=== PATIENT | female | born 1970 | race Caucasian/White ===

== ENCOUNTER → 2024-06-20 12:18 | Outpatient (ROUT) | payer BC, SELFPAY ==
[2024-06-20 12:35] LABS: BUN Creatinine Ratio 11.3 (6-22); Blood Urea Nitrogen 9 mg/dL (7-17); Calcium 9.4 mg/dL (8.4-10.2); Carbon Dioxide 24 mmol/L (22-32); Chloride 103 mmol/L (98-107); Estimated Glomerular Filt Rate > 60 mL/min (>60); Glucose 112 mg/dL (70-100); HEMOLYSIS < 15 (0-50); Potassium 4.2 mmol/L (3.4-5.1); Sodium 137 mmol/L (137-145)
== END ==
PROVIDERS: Visit Provider Family Medicine
DX: U07.1 COVID-19 (principal)
CPT/HCPCS: 80048

== ENCOUNTER → 2024-11-23 07:00 | Outpatient (CLI) | payer BC, SELFPAY ==
[2024-11-23 08:17] LABS: Hematocrit 39.3 % (36-46); Hemoglobin 13.6 g/dL (12.0-16.0); Mean Corpuscular HGB Conc 34.6 % (30-36); Mean Corpuscular Hemoglobin 31.7 PG (26-34); Mean Corpuscular Volume 91.6 fL (80-100); Platelet Count 279 X10^3/uL (150-400); Red Blood Cell Count 4.29 X10^6/uL (4.0-5.2); Red Cell Distribution Width 13.1 % (11.6-14.8); White Blood Cell Count 5.6 X10^3/uL (4.5-11.0)
[2024-11-23 08:33] LABS: Hemoglobin A1C% w Est Avg Glu 5.2 % (4.0-6.0)
[2024-11-23 08:46] LABS: Alanine Aminotransferase 36 IU/L (<35); Albumin 4.5 g/dL (3.5-5.0); Albumin Globulin Ratio 1.9 (1.0-2.8); Alkaline Phosphatase 61 U/L (38-126); Aspartate Aminotransferase 41 IU/L (14-36); BUN Creatinine Ratio 12.5 (6-22); Bilirubin Total 0.7 mg/dL (0.2-1.3); Blood Urea Nitrogen 10 mg/dL (7-17); Calcium 9.3 mg/dL (8.4-10.2); Carbon Dioxide 28 mmol/L (22-32); Chloride 104 mmol/L (98-107); Cholesterol 202 mg/dL (140-199); Estimated Glomerular Filt Rate > 60 mL/min (>60); Globulin 2.4 g/dL (1.7-4.1); Glucose 96 mg/dL (70-99); HDL Cholesterol 56 mg/dL (40-60); HEMOLYSIS < 15 (0-50); LDL Cholesterol Calculated 126 mg/dL (<100); Potassium 4.7 mmol/L (3.4-5.1); Sodium 140 mmol/L (137-145); Total Protein 6.9 g/dL (6.3-8.2); Triglycerides 98 mg/dL (35-150)
[2024-11-23 08:59] LABS: Free T3, Triiodothyronine Free 4.26 pg/mL (2.77-5.27)
[2024-11-23 09:13] LABS: Follicle Stimulating Hormone 74.4 mIU/mL
[2024-11-23 09:14] LABS: TSH w/ Reflex to FT4 1.87 uIU/mL (0.47-4.68)
[2024-11-23 09:20] LABS: Ferritin 38 ng/mL (11-264); Testosterone 29.4 ng/dL (5.71-77.0)
[2024-11-23 22:40] LABS: CRP, High Sensitivity 5.79 mg/L (0.00-3.00)
[2024-11-25 07:11] LABS: Dehydroepiandrosterone Sulfate 77.5 ug/dL (41.2-243.7)
[2024-11-25 07:36] LABS: Insulin Level Total 10.3 uIU/mL (2.6-24.9)
[2024-11-30 07:39] LABS: Estradiol, Sensitive 7.8 pg/mL (.)
== END ==
PROVIDERS: PCP Family Medicine; Referring Provider Family Medicine; Visit Provider Family Medicine
DX: N95.1 Menopausal and female climacteric states (principal); E66.812 Obesity, class 2; R53.83 Other fatigue; E88.810 Metabolic syndrome; E66.9 Obesity, unspecified; E55.9 Vitamin D deficiency, unspecified
CPT/HCPCS: 36415; 80053; 80061; 82306; 82627; 82670; 82728; 83001; 83036; 83525; 84403; 84443; 84481; 85027; 86140